=== PATIENT | female | born 1935 | race Caucasian/White ===

== ENCOUNTER 2016-12-01 13:25 | Outpatient (CLI) | payer MEDICARE, OTHER | END 2016-12-01 13:26 | disposition home or self-care (01) | DX: I10 Essential (primary) hypertension (principal); E78.5 Hyperlipidemia, unspecified ==

== ENCOUNTER 2017-06-28 20:13 | Outpatient (CLI) | payer MEDICARE, OTHER | END 2017-06-28 20:14 | disposition home or self-care (01) | LOC: LAB.R 20:13 | PROVIDERS: ATTEND Family Medicine | DX: N39.0 Urinary tract infection, site not specified (principal) | CPT/HCPCS: 87086 ==

== ENCOUNTER 2017-07-04 09:45 | Outpatient (CLI) | payer MEDICARE, OTHER | END 2017-07-04 09:46 | disposition home or self-care (01) | LOC: LAB.R 09:45 | PROVIDERS: ATTEND Family Medicine | DX: N39.0 Urinary tract infection, site not specified (principal) | CPT/HCPCS: 87086 ==

== ENCOUNTER 2017-12-24 14:49 | Outpatient (CLI) | payer MEDICARE, OTHER ==
--- NOTE | 2017-12-25 21:11 | Mammography Report ---
DATE OF SERVICE: 12/24/2017 DIGITAL SCREENING MAMMOGRAM: 12/24/2017 CLINICAL INDICATION: An 82-year-old with history of benign right breast biopsy for screening. COMPARISON: 02/2016, 01/2015, 09/2013, 08/2012, 08/2011, 08/2010. TECHNIQUE: Routine CC and MLO projections were obtained of the breasts. The breasts again demonstrate scattered fibroglandular densities bilaterally. Post-biopsy changes in the right upper central breast are stable. In the left inner slightly upper breast, there is a possible developing density. Further evaluation with spot compression views and possible ultrasound is recommended. IMPRESSION: Incomplete examination. RECOMMENDATIONS: Additional evaluation of the left breast as above. BIRADS category: 0, incomplete. STANDARD QUALIFYING STATEMENTS 1. This examination was reviewed with the aid of Computed-Aided Detection (CAD). 2. A negative or benign imaging report should not delay biopsy if clinically suspicious findings are present. Consider surgical consultation if warranted. More than 5% of cancers are not identified by imaging. 3. Dense breasts may obscure an underlying neoplasm. TD: 12/25/2017 22:10
== END 2017-12-24 14:50 | disposition home or self-care (01) ==
LOC: DI 14:49
PROVIDERS: ATTEND Family Medicine
DX: Z12.31 Encounter for screening mammogram for malignant neoplasm of breast (principal); R92.8 Other abnormal and inconclusive findings on diagnostic imaging of breast
CPT/HCPCS: 77067

== ENCOUNTER 2017-12-24 14:49 | Outpatient (CLI) | payer MEDICARE, OTHER ==
--- NOTE | 2017-12-26 13:05 | DEXA Report ---
DEXA: 12/24/2017 CLINICAL INDICATION: Postmenopausal. TECHNIQUE: Dual energy x-ray absorptiometry (DXA) was performed on a [employer] system. Regions measured are the AP spine, femoral neck, and, if needed, forearm. COMPARISON: None. In accordance with the International Society for Clinical Densitometry (ISCD) guidelines, data from previous exams may be reanalyzed using current recommendations and techniques. This is done to allow a more accurate basis for comparison with the current study. FINDINGS The data for the lumbar spine is as follows: REGION BMD (g/cm/cm) T-SCORE Z-SCORE L1 0.965 -1.4 0.6 L2 1.040 -1.3 0.7 L3 1.076 -1.0 1.0 L4 1.194 0.0 2.0 L1-L4 1.077 -0.9 1.2 L2-L4 1.108 -0.8 1.2 NOTE: All evaluable vertebrae are used for classification. The data for the hip is as follows: REGION BMD (g/cm/cm) T-SCORE Z-SCORE Neck 0.780 -1.9 0.5 TOTAL 0.790 -1.7 0.5 NOTE: The femoral neck or total proximal femur, whichever is lowest, is used for classification. IMPRESSION THE WHO CLASSIFICATION BASED ON THE INTERNATIONAL REFERENCE STANDARD IS OSTEOPENIA. THE FRACTURE RISK IS INCREASED. RECOMMENDATION: Patients with diagnosis of osteoporosis or osteopenia should have regular bone mineral density assessment. For those eligible for Medicare, routine testing is allowed once every 2 years. Testing frequency can be increased for patients who have rapidly progressing disease or for those who are receiving medical therapy to restore bone mass. COMMENT: World Health Organization (WHO) definitions for osteoporosis and osteopenia: NORMAL BMD: T-score at 1.0 or higher, fracture risk is low. OSTEOPENIA BMD: T-score between 1.0 and -2.5, fracture risk is increased. OSTEOPOROSIS BMD: T-score at 2.5 or lower, fracture risk high. National Osteoporosis Foundation recommends: 1. Obtain adequate dietary calcium (at least 1200 mg per day) and vitamin D (400 -800 international units per day). 2. Participate, as appropriate, in regular weightbearing and muscle- strengthening exercise. 3. Avoid tobacco use and reduce alcohol and caffeine intake. 4. For more detailed information see the website at www.NOF.org. TD: 12/25/2017 17:52 MTDD
== END 2017-12-24 14:50 | disposition home or self-care (01) ==
LOC: DI 14:49
PROVIDERS: ATTEND Family Medicine
DX: M85.88 Other specified disorders of bone density and structure, other site (principal)
CPT/HCPCS: 77080

== ENCOUNTER 2018-01-23 09:47 | Outpatient (CLI) | payer MEDICARE, OTHER ==
--- NOTE | 2018-01-23 14:04 | Ultrasound Report ---
LEFT BREAST ULTRASOUND: 01/23/2018 CLINICAL INDICATION: Possible nodule left breast. TECHNIQUE: Real-time scanning was performed with licensing representative static images obtained. FINDINGS: Ultrasound of the left inner breast was performed. At the 9 o'clock position, approximately 6 cm from the nipple, there is a hypoechoic mostly circumscribed nodule, with no demonstrable vascularity. It measures 5 x 5 x 4 mm. The central calcification identified on mammogram is visible on ultrasound. Given that this is new from previous mammograms, it is suspicious, and biopsy is recommended. The nodule appears amenable to ultrasound-guided core needle biopsy. IMPRESSION: SUSPICIOUS SOLID NODULE CORRELATING WITH THE MAMMOGRAPHIC ABNORMALITY. RECOMMENDATION: BIOPSY. THE NODULE APPEARS AMENABLE TO ULTRASOUND-GUIDED CORE NEEDLE BIOPSY. BI-RADS CATEGORY 4-SUSPICIOUS ABNORMALITY. Results and recommendations discussed with the patient at the time of the examination, and called to Dr. Ferrari on 01/23/2018. Biopsy is scheduled for 01/29/2018 at 9:45 a.m. TD: 01/23/2018 14:03
--- NOTE | 2018-01-23 16:20 | Mammography Report ---
DIGITAL DIAGNOSTIC LEFT MAMMOGRAM: 01/23/2018 CLINICAL INDICATION: Possible nodule on screening exam. TECHNIQUE: Left true lateral and spot compression views. COMPARISON: 12/24/2017, 03/03/2016, 02/01/2015, 10/17/2013, 09/13/2012, 09/19/2011, 09/19/2010. FINDINGS: The left breast again demonstrates scattered fibroglandular densities. The density in question in the left inner central breast persists on additional compression. The margins appear mostly circumscribed. A central calcification is present. Please also refer to left breast ultrasound of the same day. IMPRESSION: SUSPICIOUS ABNORMALITY, WITH A SOLID NODULE ON ULTRASOUND CORRELATING WITH THE MAMMOGRAPHIC ABNORMALITY. RECOMMENDATION: BIOPSY. THE NODULE APPEARS AMENABLE TO ULTRASOUND-GUIDED CORE NEEDLE BIOPSY. BIRADS CATEGORY 4-SUSPICIOUS ABNORMALITY. Results and recommendations discussed with the patient at the time of the examination, and called to Dr. Ferrari on 01/23/2018. Biopsy is scheduled for 01/29/2018 at 9:45 a.m. STANDARD QUALIFYING STATEMENTS: 1. This examination was reviewed with the aid of Computer-Aided Detection (CAD). 2. A negative or benign imaging report should not delay biopsy if clinically suspicious findings are present. Consider surgical consultation if warranted. More than 5% of cancers are not identified by imaging. 3. Dense breasts may obscure an underlying neoplasm. TD: 01/23/2018 16:19
== END 2018-01-23 09:48 | disposition home or self-care (01) ==
LOC: DI 09:47
PROVIDERS: ATTEND Physician Assistant Medical
DX: N63.22 Unspecified lump in the left breast, upper inner quadrant (principal); N63.24 Unspecified lump in the left breast, lower inner quadrant
CPT/HCPCS: 76642

== ENCOUNTER 2018-01-29 09:23 | Outpatient (CLI) | payer MEDICARE, OTHER ==
[2018-01-29 12:28] VITALS: BP 155/59
[2018-01-29] MEDS ORDERED: BUFFERED LIDOCAINE 10 ML SYRINGE IU ONE (14:24)
[2018-01-29] MEDS ORDERED: BUPIVACAINE 0.5%-EPI 1:200000 PF 10 ML VIAL SUBQ STA (14:32)
--- NOTE | 2018-01-29 15:10 | Ultrasound Report ---
ULTRASOUND GUIDED CORE NEEDLE BIOPSY LEFT BREAST: 01/29/2018 CLINICAL INDICATION: 4 mm nodule with central calcification 9-o'clock position, left breast. FINDINGS: Following obtaining informed consent, the patient's left breast was prepped and draped in the usual sterile fashion. The skin and soft tissues were anesthetized with lidocaine and Sensorcaine. A small luisa was made in the skin with a #11 blade. A 12-gauge Celero vacuum-assisted device was used to obtain 3 specimens. A Celero marker was placed into the biopsy cavity under ultrasound guidance. The patient was taken to a separate mammography machine, and a 2-view digital mammogram was performed, demonstrating the marker adjacent to the nodule and calcification, and no significant postbiopsy hematoma. The wound was dressed and ice applied. The patient was observed for approximately 15 minutes, then was discharged from [facility] in good condition following instructions on wound care and obtaining biopsy results. The tissue was sent for histologic analysis. IMPRESSION: ULTRASOUND-GUIDED BIOPSY OF THE LEFT BREAST. AN ADDENDUM WILL BE MADE TO THIS REPORT WHEN THE PATHOLOGY IS REVIEWED TO ESTABLISH CONCORDANCE. TD: 01/29/2018 15:09
== END 2018-01-29 09:24 | disposition home or self-care (01) ==
LOC: DI 09:23
PROVIDERS: ATTEND Family Medicine
DX: N60.32 Fibrosclerosis of left breast (principal); N64.1 Fat necrosis of breast
CPT/HCPCS: 19083; 88305

== ENCOUNTER 2019-01-27 09:41 | Outpatient (CLI) | payer MEDICARE, OTHER ==
--- NOTE | 2019-01-28 10:35 | Ultrasound Report ---
Reason: THYROMEGALY Procedure Date: 01/27/2019 Accession Number: [id number] / [id number] Procedure: US - Head or Neck Soft Tissue CPT Code: FULL RESULT: EXAM: THYROID ULTRASOUND EXAM DATE: 01/27/2019 11:17 AM. CLINICAL HISTORY: Thyromegaly. COMPARISON: None. TECHNIQUE: Real time sonographic imaging of the thyroid was performed by the clothes presser. Multiple policy services representative static images were saved for review. FINDINGS: THYROID GLAND: Right Lobe: 4.4 x 1.3 x 1.3 cm, volume 3.9 cc. Normal background echotexture. Right Lobe Nodules: 1. 0.5 x 0.3 x 0.4 cm heterogeneous predominantly solid posterior mid right thyroid nodule with small cystic components. No vascularity or microcalcifications. 2. 1.1 x 0.5 x 0.7 cm heterogeneous mixed cystic and solid inferior right thyroid nodule. No vascularity or microcalcifications. 3. 0.4 x 0.3 x 0.4 cm septated hypoechoic inferior right thyroid colloid cyst. No solid components or thickened septations or mural nodules identified. Left Lobe: 4.1 x 1.1 x 1.2 cm, volume 2.8 cc. Normal background echotexture. Left Lobe Nodules: None. Isthmus: 0.3 cm AP. Isthmic Nodules: None. LYMPH NODES: No adenopathy demonstrated in the central or lateral compartment. OTHER: None. IMPRESSION: 1. Multiple solid and mixed cystic and solid right thyroid nodules. No concerning thyroid nodule or mass warranting immediate percutaneous ultrasound-guided biopsy. Findings could be followed in 12-24 months to document stability. 2. No pathologic adenopathy. Management recommendations are based on 2015 [place] [employer] Management Guidelines for Adult Patients with Thyroid Nodules and Differentiated Thyroid Cancer. RADIA
== END 2019-01-27 09:42 | disposition home or self-care (01) ==
LOC: DI 09:41
PROVIDERS: ATTEND Family Medicine
DX: E01.0 Iodine-deficiency related diffuse (endemic) goiter (principal)
CPT/HCPCS: 76536

== ENCOUNTER 2019-04-11 12:40 | Outpatient (CLI) | payer MEDICARE, OTHER ==
--- NOTE | 2019-04-11 13:25 | Mammography Report ---
Reason: ABNORMAL MAMMO Procedure Date: 04/11/2019 Accession Number: [id number] / [id number] Procedure: [facility] - Diagnostic Dig Bilat CPT Code: FULL RESULT: EXAM: Diagnostic Dig Bilat DATE: 04/11/2019 1:09 PM CLINICAL HISTORY: Surveillance imaging left breast for benign concordant biopsy if fat necrosis. Prior history of benign breast biopsy on the right as well. No reported personal or family history of breast cancer. TECHNIQUE: (B) - Bilateral CC and MLO views were obtained. COMPARISON: 01/29/2018 through 10/17/2013 PARENCHYMAL PATTERN: (A) - The breasts demonstrate scattered fibroglandular densities bilaterally. FINDINGS: Bilateral breasts: There are no suspicious masses, calcifications, or areas of distortion. Stable biopsy marker in the upper central right breast. Expected appearance of benign concordant biopsy site medial left breast with associated clip, which returned fat necrosis. IMPRESSION: Bilateral breasts: Benign bilateral imaging findings. Expected appearance of benign concordant biopsy of fat necrosis medial left breast. Benign. BI-RADS Category 2. Recommend return to annual screening mammography. RECOMMENDATION: (ANNUAL) - Recommend routine annual screening mammography. BI-RADS CATEGORY: (2) - Benign Findings. STANDARD QUALIFYING STATEMENTS: 1. This examination was not reviewed with the aid of Computer-Aided Detection (CAD). 2. A negative or benign imaging report should not preclude biopsy if clinically suspicious findings are present. 3. Dense breasts may obscure an underlying neoplasm. 4. This examination was reviewed with the aid of 3D breast imaging (tomosynthesis).
== END 2019-04-11 12:41 | disposition home or self-care (01) ==
LOC: DI 12:40
PROVIDERS: ATTEND Family Medicine
DX: R92.8 Other abnormal and inconclusive findings on diagnostic imaging of breast (principal)
CPT/HCPCS: 77066

== ENCOUNTER 2020-05-21 08:00 | Outpatient (CLI) | payer MEDICARE, OTHER ==
[2020-05-21 12:21] LABS: BASOPHILS # (AUTO) 0.1 10^3/uL (0.0-0.1); BASOPHILS % (AUTO) 0.9 %; EOSINOPHILS # (AUTO) 0.2 10^3/uL (0.0-0.7); EOSINOPHILS % (AUTO) 2.3 %; HGB - HEMOGLOBIN 14.1 g/dL (12.0-16.0); LYMPHOCYTES # (AUTO) 1.3 10^3/uL (1.5-3.5); LYMPHOCYTES % (AUTO) 19.7 %; MEAN CORPUSCULAR HGB CONC 32.6 g/dL (32.0-36.0); MEAN CORPUSCULAR VOLUME 95.2 fL (81.0-99.0); MEAN PLATELET VOLUME 10.5 fL (7.9-10.8); MONOCYTES # (AUTO) 0.8 10^3/uL (0.0-1.0); MONOCYTES % (AUTO) 11.5 %; NEUTROPHILS # (AUTO) 4.2 10^3/uL (1.5-6.6); NEUTROPHILS % (AUTO) 65.1 %; PLT - PLATELET COUNT 242 10^3/uL (130-450); RED BLOOD COUNT 4.55 10^6/uL (4.20-5.40); WHITE BLOOD COUNT 6.5 x10^3/uL (4.8-10.8)
[2020-05-21 13:02] LABS: ALBUMIN 4.3 g/dL (3.2-5.5); ALBUMIN/GLOBULIN RATIO 1.7 (1.0-2.2); ALKALINE PHOSPHATASE 71 IU/L (42-121); ALT ALANINE AMINOTRANSFERASE 21 IU/L (10-60); AST ASPARTATE AMINOTRANSFERASE 23 IU/L (10-42); BUN - BLOOD UREA NITROGEN 21 mg/dL (6-20); CALCIUM 9.5 mg/dL (8.5-10.3); CARBON DIOXIDE - CO2 27 mmol/L (21-32); CHLORIDE 104 mmol/L (101-111); CHOL/HDL RATIO 2.7 (<4.4); CHOLESTEROL 200 mg/dL; CREATININE 0.8 mg/dL (0.4-1.0); GLUCOSE 124 mg/dL (70-100); HDL CHOLESTEROL 75 mg/dL; LDL CHOLESTEROL,CALCULATED 103 mg/dL; LDL/HDL RATIO 1.4 (<4.4); SODIUM 141 mmol/L (135-145); TOTAL PROTEIN 6.8 g/dL (6.7-8.2); VLDL CHOLESTEROL 22 mg/dL
[2020-05-21 13:11] LABS: FREE T4 (FREE THYROXINE) 0.76 ng/dL (0.58-1.64)
== END 2020-05-21 23:59 | disposition home or self-care (01) ==
LOC: LAB.WCP 08:00
PROVIDERS: ATTEND Family Medicine
DX: I10 Essential (primary) hypertension (principal); E78.5 Hyperlipidemia, unspecified; E01.0 Iodine-deficiency related diffuse (endemic) goiter
CPT/HCPCS: 36415; 80053; 80061; 83721; 84439; 84443; 84481; 85025

== ENCOUNTER 2020-05-24 10:38 | Outpatient (CLI) | payer MEDICARE, OTHER ==
--- NOTE | 2020-05-24 11:54 | DEXA Report ---
Reason: POST MENOPAUSAL Procedure Date: 05/24/2020 Accession Number: [id number] / [id number] Procedure: DEX - Dexa Spine and/or Hip CPT Code: Final Report FULL RESULT: PROCEDURE: Dexa Spine and/or Hip INDICATIONS: POST MENOPAUSAL TECHNIQUE: Dual energy x-ray absorptiometry (DXA) was performed on a [employer] System. Regions measured are the AP Spine, femoral neck, and if needed forearm. COMPARISON: None. FINDINGS: Lumbar Spine: Bone Mineral Density 1.099 g/cm/cm,T score -0.7, Left Femoral Neck: Bone Mineral Density 0.758 g/cm/cm, T score -2.0, (T score greater or equal to -1.0: NORMAL) (T score from -1.1 to -2.4: OSTEOPENIA) (T score less than or equal to -2.5 to: OSTEOPOROSIS) Impression: Osteopenia. Patients with diagnosis of osteoporosis or osteopenia should have regular bone mineral density assessment. For those eligible for Medicare, routine testing is allowed once every 2 years. Testing frequency can be increased for patients who have rapidly progressing disease or for those who are receiving medical therapy to restore bone mass. Reviewed by: Mika Stearns MD on 05/24/2020 11:52 AM PDT Approved by: Mika Stearns MD on 05/24/2020 11:52 AM PDT Station ID: [id number]
== END 2020-05-24 10:39 | disposition home or self-care (01) ==
LOC: DI 10:38
PROVIDERS: ATTEND Family Medicine
DX: M85.88 Other specified disorders of bone density and structure, other site (principal)
CPT/HCPCS: 77080

== ENCOUNTER 2021-03-22 09:42 | Outpatient (CLI) | payer MEDICARE, OTHER ==
--- NOTE | 2021-03-23 13:08 | Mammography Report ---
BILATERAL DIGITAL SCREENING MAMMOGRAM 3D/2D: 03/22/2021 CLINICAL: Routine screening. Comparison is made to exams dated: 04/11/2019 mammogram, 01/29/2018 mammogram, 01/23/2018 mammogram, 11/27 mammogram, and 03/03/2016 mammogram - [facility]. The tissue of both breasts is predominantly fatty. There are benign calcifications in both breasts. No significant masses, calcifications, or other findings are seen in either breast. There has been no significant interval change. IMPRESSION: BENIGN There is no mammographic evidence of malignancy. A 1 year screening mammogram is recommended. This exam was interpreted at Station ID: [id number]. NOTE: For mammograms, a report in lay terms will be sent to the patient. Approximately 15% of breast malignancies will not be visualized mammographically. In the management of a palpable breast mass, a negative mammogram must not discourage biopsy of a clinically suspicious lesion. Electronically Signed By: Les Richmond acr/penrad:03/22/2021 10:54:55 ACR BI-RADS Category 2: Benign Finding(s) 3342F PARENCHYMAL PATTERN: (F) - The breast(s) demonstrate(s) diffuse fatty replacement. BI-RADS CATEGORY: (2) - 2 RECOMMENDATION: (ANNUAL) - Recommend routine annual screening mammography. [id number] 1 year screening LATERALITY: (B)
== END 2021-03-22 09:43 | disposition home or self-care (01) ==
LOC: DI 09:42
PROVIDERS: ATTEND Family Medicine
DX: Z12.31 Encounter for screening mammogram for malignant neoplasm of breast (principal)

== ENCOUNTER 2023-01-09 14:45 | Outpatient (CLI) | payer MEDICARE, OTHER ==
--- NOTE | 2023-01-09 17:14 | Ultrasound Report ---
PROCEDURE: Head or Neck Soft Tissue INDICATIONS: THYROID NODULE TECHNIQUE: Real-time scanning was performed of the thyroid gland, with image documentation. COMPARISON: 01/27/2019 FINDINGS: Right: Thyroid lobe measures 4.5 x 1.1 x 1.4 cm, and is homogeneous in echotexture. Left: Thyroid lobe measures 4.1 x 1.3 x 1.3 cm, and is homogenous in echotexture. Isthmus: 2.3 mm thick. Nodule number: One Location: Midpole of right thyroid lobe Size: 0.4 x 0.3 x 0.4 cm, previously 0.5 x 0.3 x 0.4 cm. Composition: Spongiform Echogenicity: Hypoechoic Shape: wider than tall. Margins: Smooth Echogenic foci: None Total points: 3 ACR TI-RADS category: Mildly suspicious. Nodule number: Two Location: Lower pole right thyroid lobe Size: 0.9 x 0.4 x 0.5 cm, previously 1.1 x 0.5 x 0.7 cm. Composition: Predominantly solid Echogenicity: Hypoechoic Shape: wider than tall. Margins: Smooth Echogenic foci: Punctate Total points: 6 ACR TI-RADS category: Moderately suspicious Nodule number: Three Location: Lower pole right thyroid lobe Size: 0.4 x 0.4 x 0.5 cm, previously 0.4 x 0.3 x 0.4 cm. Composition: Cystic Echogenicity: Anechoic Shape: wider than tall. Margins: Smooth Echogenic foci: None Total points: 0 ACR TI-RADS category: Benign IMPRESSION: 1. Tiny right thyroid lobe nodules as described in detail above is essentially unchanged or slightly smaller in size compared to prior study in 2019. Findings likely represent benign process. No further sonographic follow-up is indicated at this time. ACR TI-RADS definitions and recommendations: TI-RADS 1 (benign): 0 points. FNA not needed. TI-RADS 2 (not suspicious): 2 points. FNA not needed. TI-RADS 3 (mildly suspicious): 3 points. "FNA if 2.5 cm or larger, follow up if 1.5 cm or larger (at 1, 3, and 5 years). TI-RADS 4 (moderately suspicious): 4-6 points. "FNA if 1.5 cm or larger, follow up if 1 cm or larger (at 1, 2, 3, and 5 years). TI-RADS 5 (highly suspicious): 7 points or more. "FNA if 1 cm or larger, follow up if 0.5 cm or larger (every year for 5 years). Reviewed by: Mathew Maldonado MD on 01/09/2023 5:13 PM PST Approved by: Mathew Maldonado MD on 01/09/2023 5:13 PM [facility] Station ID: [id number]
== END 2023-01-09 14:46 | disposition home or self-care (01) ==
LOC: DI 14:45
PROVIDERS: ATTEND Internal Medicine
DX: E04.2 Nontoxic multinodular goiter (principal)

== ENCOUNTER 2023-01-09 14:46 | Outpatient (CLI) | payer MEDICARE, OTHER ==
--- NOTE | 2023-01-10 11:36 | Mammography Report ---
BILATERAL DIGITAL SCREENING MAMMOGRAM 3D/2D: 01/09/2023 CLINICAL: Routine screening. Comparison is made to exams dated: 03/22/2021 mammogram, 04/11/2019 mammogram, 01/29/2018 mammogram, 12/28 mammogram, and 12/24/2017 mammogram - [facility]. Both breasts are almost entirely fatty (category a/<25% glandular tissue). There are benign calcifications in both breasts. There also is a biopsy clip in both breasts. No significant masses, calcifications, or other findings are seen in either breast. There has been no significant interval change. IMPRESSION: BENIGN There is no mammographic evidence of malignancy. A 1 year screening mammogram is recommended. This exam was interpreted at Station ID: [id number]. NOTE: For mammograms, a report in lay terms will be sent to the patient. Approximately 15% of breast malignancies will not be visualized mammographically. In the management of a palpable breast mass, a negative mammogram must not discourage biopsy of a clinically suspicious lesion. Electronically Signed By: Gomez hernandez/vladimir:01/10/2023 07:22:51 ACR BI-RADS Category 2: Benign Finding(s) 3342F PARENCHYMAL PATTERN: (F) - The breast(s) demonstrate(s) diffuse fatty replacement. BI-RADS CATEGORY: (2) - 2 RECOMMENDATION: (ANNUAL) - Recommend routine annual screening mammography. [id number] 1 year screening LATERALITY: (B)
== END 2023-01-09 14:47 | disposition home or self-care (01) ==
LOC: DI 14:46
PROVIDERS: ATTEND Internal Medicine
DX: Z12.31 Encounter for screening mammogram for malignant neoplasm of breast (principal)

== ENCOUNTER 2024-02-06 09:14 | Outpatient (CLI) | payer MEDICARE, OTHER | END 2024-02-06 09:15 | disposition critical access hospital (66) | LOC: EMS 09:14 | DX: R07.9 Chest pain, unspecified (principal); M54.9 Dorsalgia, unspecified; M79.602 Pain in left arm; M79.601 Pain in right arm; R55 Syncope and collapse; R53.1 Weakness | CPT/HCPCS: A0425; A0427 ==

== ENCOUNTER 2024-02-06 09:27 | Emergency (ER) | payer MEDICARE, OTHER ==
[2024-02-06] MEDS: SODIUM CHLORIDE 0.9% 1,000 ML IV STA (09:53)
[2024-02-06 10:08] LABS: BASOPHILS % (AUTO) 0.2 %; EOSINOPHILS % (AUTO) 0.1 %; HCT - HEMATOCRIT 41.8 % (37.0-47.0); HGB - HEMOGLOBIN 13.5 g/dL (12.0-16.0); LYMPHOCYTES # (AUTO) 0.3 10^3/uL (1.5-3.5); LYMPHOCYTES % (AUTO) 2.3 %; MEAN CORPUSCULAR HEMOGLOBIN 30.1 pg (27.0-31.0); MEAN CORPUSCULAR HGB CONC 32.3 g/dL (32.0-36.0); MEAN CORPUSCULAR VOLUME 93.3 fL (81.0-99.0); MEAN PLATELET VOLUME 9.7 fL (7.9-10.8); MONOCYTES # (AUTO) 1.1 10^3/uL (0.0-1.0); MONOCYTES % (AUTO) 7.5 %; NEUTROPHILS # (AUTO) 13.4 10^3/uL (1.5-6.6); NEUTROPHILS % (AUTO) 88.8 %; PLT - PLATELET COUNT 187 10^3/uL (130-450); RED BLOOD COUNT 4.48 10^6/uL (4.20-5.40); RED CELL DISTRIBUTION WIDTH 13.2 % (12.0-15.0); WHITE BLOOD COUNT 15.1 x10^3/uL (4.8-10.8)
[2024-02-06 10:21] LABS: ALBUMIN/GLOBULIN RATIO 1.4 (1.0-2.2); ALKALINE PHOSPHATASE 80 IU/L (42-121); ALT ALANINE AMINOTRANSFERASE 30 IU/L (10-60); AST ASPARTATE AMINOTRANSFERASE 35 IU/L (10-42); BILIRUBIN,TOTAL 1.2 mg/dL (0.2-1.0); BUN - BLOOD UREA NITROGEN 17 mg/dL (6-20); CALCIUM 9.5 mg/dL (8.5-10.3); CARBON DIOXIDE - CO2 27 mmol/L (21-32); CHLORIDE 101 mmol/L (101-111); CREATININE 0.8 mg/dL (0.6-1.3); GFR - MDRD 68 (>89); GLUCOSE 152 mg/dL (74-104); SODIUM 135 mmol/L (135-145); TOTAL PROTEIN 6.8 g/dL (6.4-8.9)
[2024-02-06 10:23] LABS: LIPASE < 10 U/L (11-82)
[2024-02-06 10:27] LABS: TROPONIN I HIGH SENSITIVITY 12.9 ng/L (2.3-14.8)
--- NOTE | 2024-02-06 13:34 | CT Report ---
PROCEDURE: Head WO INDICATIONS: fall/head strike TECHNIQUE: Noncontrast 4.5 mm thick angled axial sections acquired from the foramen magnum to the vertex. For r adiation dose reduction, the following was used: automated exposure control, adjustment of mA and/or kV according to patient size. COMPARISON: None. FINDINGS: Image quality: Diagnostic CSF spaces: Basal cisterns are patent. Lateral ventricles are symmetric. Volume: Vascular calcifications. Periventricular white matter disease is commonly seen with chronic m icroangiopathy. Volume loss is present. These findings are mild to moderate. Brain: No intracranial hemorrhage. Wilson-white differentiation is grossly maintained. Craniofacial structures: No displaced fracture. Sinuses are clear. Orbits are intact. IMPRESSION: No acute intracranial abnormality. Reviewed by: Jam Issa MD on 02/06/2024 1:33 PM PDT Approved by: Jam Issa MD on 02/06/2024 1:33 PM PDT Station ID: [id number]
--- NOTE | 2024-02-06 13:38 | CT Report ---
PROCEDURE: Cervical Spine WO INDICATIONS: fall/pain TECHNIQUE: Noncontrast 3 mm thick sections acquired from the skull base to the T4 level. Sagittal and coronal r eformats were then constructed. For radiation dose reduction, the following was used: automated exp osure control, adjustment of mA and/or kV according to patient size. COMPARISON: None. FINDINGS: Image quality: Diagnostic Bones: Mild to moderate degenerative changes. Trace anterolisthesis of C6 on C7. Vertebral body heigh ts in the cervical spine are well-maintained. No traumatic subluxation. At the T1 vertebral body, there is an acute appearing fracture with less than 50% height loss. Partially visualized possible fracture also seen at the T3 vertebral body superior endplate. Soft tissues: No pathologic prevertebral soft tissue swelling. There are vascular calcifications. IMPRESSION: T1 and possible T3 fractures with less than 50% height loss. Trace anterolisthesis of C6 on C7, possi jessica degenerative. Mild to moderate overall spondylosis. Reviewed by: Jam Issa MD on 02/06/2024 1:37 PM PDT Approved by: Jam Issa MD on 02/06/2024 1:37 PM PDT Station ID: [id number]
--- NOTE | 2024-02-06 15:06 | ED Physician Documentation ---
History of Present Illness - Stated complaint Stated Complaint: GLF - Chief complaint Chief Complaint: Neuro - History obtained from History obtained from: Patient, EMS - Additonal information Additional information: The pt is brought by EMS to the ED for CC of syncope/GLF. The pt states she felt fine when she went to bed last night, but this morning when she got up to go to the bathroom, she felt lightheaded when she stood up. The pt had no CP, SOB, nausea, or focal weakness at that time. The pt immediately proceeded to ambulate to the bathroom, but by the last thing she remembers was washing her face at the sink, after which she woke up on the floor. The pt noticed some upper back pain, but otherwise seemed unhurt. She does not think she hit her ribs or head. She was able to get back up and ambulate to her bed, where she laid down for some time. She then was able to get back up, and while she felt a bit lightheaded, did not have another syncopal or near-syncopal episode. She states she walked to the front door, unlocked it, walked to her recliner in the living room, and called EMS. MEdics state that when they arrived, pt was sitting in her recliner, stable. She has had normal vital signs en-route. Pt states she has a pain in her upper back that radiates to her anterior chest, and hurts worse with movement and deep breaths. No SOB. No nausea or diaphoresis. No h/o CAD. No cough, fever, chills, vomiting, or diarrhea. The pt does admit that she probably does not drink enough water. The pt lives on her own and states that normally, she does very well. She was last June. PD PAST MEDICAL HISTORY - Past Medical History Past Medical History: Yes Cardiovascular: Hypertension, High cholesterol : Incontinence HEENT: Macular degeneration - Past Surgical History Past Surgical History: Yes General: Cholecystectomy HEENT: Cataracts, Tonsil/Adenoidectomy - Present Medications Home Medications: Ambulatory Orders Medication Instructions Recorded Confirmed HYDROcod/ACETAM 5/325 [[place] 5/325] 0.5 - 1 tablet PO Q6H PRN #14 02/06/24 tablet Magnesium 1 tab PO DAILY 02/06/24 02/06/24 Metoprolol Tartrate [Lopressor] 1 tab PO DAILY 02/06/24 02/06/24 Simvastatin [Zocor] 1 tab PO DAILY 02/06/24 02/06/24 oxyBUTYnin chloride [Oxybutynin 1 tab PO DAILY 02/06/24 02/06/24 Chloride] - Allergies Allergies/Adverse Reactions: Allergies Allergy/AdvReac Type Severity Reaction Status Date / Time No Known Drug Allergies Allergy Verified 02/06/24 09:31 - Social History Does the pt smoke?: No Smoking Status: Never smoker - Immunizations Immunizations are current?: Yes - POLST Patient has POLST: No PD ED PE NORMAL - Vitals Vital signs reviewed: Yes - General General: Alert and oriented X 3, No acute distress, Well developed/nourished - HEENT HEENT: Atraumatic, PERRL, EOMI, Moist mucous membranes - Neck Neck: Supple, no meningeal sign, Other (Pt in C-collar. TTP over superior-most T-spine and C 3-4 area.) - Cardiac Cardiac: RRR, No murmur, Strong equal pulses - Respiratory Respiratory: No respiratory distress, Clear bilaterally - Abdomen Abdomen: Soft, Non tender, Non distended - Back Back: Other (TTP without deformity T1-3 levels) - Derm Derm: Normal color, Warm and dry, No rash - Extremities Extremities: No deformity, No edema - Neuro Neuro: Alert and oriented X 3, nutrition services associate 2-12 intact, No motor deficit, No sensory deficit, Normal speech - Psych Psych: Normal mood, Normal affect - Free text exam Free text exam: Focal TTP R superoanteromedial chest. No deformity. Results - Vitals Vitals: Vital Signs - 24 hr 02/06/24 02/06/24 02/06/24 09:31 09:36 10:06 Temperature 36.7 C Heart Rate 96 90 88 Respiratory 16 17 19 Rate Blood Pressure 135/62 H 135/62 H 135/62 H O2 Saturation 92 90 L 92 02/06/24 02/06/24 02/06/24 10:36 11:06 11:30 Temperature Heart Rate 81 78 76 Respiratory 16 21 12 Rate Blood Pressure 129/50 L 129/61 126/68 O2 Saturation 90 L 90 L 02/06/24 02/06/24 02/06/24 12:00 12:30 13:00 Temperature Heart Rate 77 78 77 Respiratory 18 14 18 Rate Blood Pressure 131/62 H 129/54 L 131/62 H O2 Saturation 90 L 91 L 94 02/06/24 02/06/24 02/06/24 13:30 14:00 14:24 Temperature Heart Rate 77 72 70 Respiratory 12 14 14 Rate Blood Pressure 130/60 126/65 128/66 O2 Saturation 92 92 91 L 02/06/24 02/06/24 02/06/24 15:00 15:13 15:33 Temperature Heart Rate 68 72 67 Respiratory 14 14 14 Rate Blood Pressure 146/55 H 148/77 H 135/72 H O2 Saturation 93 92 92 Oxygen O2 Source Room air - Labs Labs: Laboratory Tests 02/06/24 02/06/24 09:59 09:59 WBC 15.1 H RBC 4.48 Hgb 13.5 Hct 41.8 MCV 93.3 MCH 30.1 MCHC 32.3 RDW 13.2 Plt Count 187 MPV 9.7 Neut # (Auto) 13.4 H Lymph # (Auto) 0.3 L [place] # (Auto) 1.1 H Eos # (Auto) 0.0 Baso # (Auto) 0.0 Absolute Nucleated RBC 0.00 Nucleated RBC % 0.0 Sodium 135 Potassium 4.0 Chloride 101 Carbon Dioxide 27 Anion Gap 7.0 BUN 17 Creatinine 0.8 Estimated GFR (MDRD) 68 L Glucose 152 H Calcium 9.5 Total Bilirubin 1.2 H AST 35 ALT 30 Alkaline Phosphatase 80 Troponin I High Sens 12.9 Total Protein 6.8 Albumin 4.0 Globulin 2.8 Albumin/Globulin Ratio 1.4 Lipase < 10 L - Rads (name of study) CT head Relevant Findings:: Final report received, See rad report (neg) CT cervical spine Relevant Findings:: Final report received (compression fx T1 and T3) PD Medical Decision Making - ED course Complexity details: reviewed results, re-evaluated patient, considered differential, d/w patient ED course: The pt was given IV fluids and worked up with labs, EKG, and CT scans of head and neck, all of which were unremarkable. I d/w pt that I have not found an emergent cause of her sx. She has been in NSR on the monitor throughout her entire stay, and after the initial syncopal episode, was ambulatory without difficulty. The pt does have compression fractures of T1 and 3, and this is most likely the cause of her mechanical back and chest pain. We have discussed symptomatic management at home, as well as the usual indications for return. Departure - Departure Disposition: 01 Home, Self Care Clinical Impression: Ground-level fall, Dehydration, Postural dizziness Compressed spine fracture Qualifiers: Encounter type: initial encounter Fracture of vertebra location: thoracic Thoracic vertebra fracture level: T1 Qualified Code(s): S22.010A - Wedge compression fracture of first thoracic vertebra, initial encounter for closed fracture Condition: Stable Instructions: ED Fx Comp Vertebral, ED Dehydration, ED Syncope Vasovagal Prescriptions: HYDROcod/ACETAM 5/325 [[place] 5/325] 0.5 - 1 tablet PO Q6H PRN #14 tablet PRN Reason: Pain Comments: Your laboratory studies look good. Your CT scans showed compression fractures in your upper T-spine, and these are going to take a long time to heal. You will most likely have some pain through at least part of that process, though it should gradually start to improve after the first week or two. A prescription for pain medication has been electronically transmitted to the [facility] pharmacy in [place]. You may take this as needed for pain, along with either the ibuprofen or aspirin, but please do not take Tylenol with this medication, as it does already contain some Tylenol. You should schedule a follow-up appoint with your primary doctor. If you are beginning to feel that you are not safe to live at home by yourself, then you should start the process early of looking into other situations, either having home help or moving to assisted living. If you are otherwise doing well living on your own, it may just be that you need some time to recover from what ever is making you feel weak and lightheaded. Get plenty of rest and fluids to drink, and make sure that when you sit or stand up, you allow time for your body to adjust to being up before you start trying to walk or maneuver. Forms: PCP List Discharge Date/Time: 02/06/24 15:38
[2024-02-06 15:20] VITALS: O2SAT 92
[2024-02-06 15:38] VITALS: BP 135/72
== END 2024-02-06 15:38 | disposition home or self-care (01) ==
LOC: EDUNIT# → SUPCPDRO 09:27 → ED 09:27
DX: S22.010A Wedge compression fracture of first thoracic vertebra, initial encounter for closed fracture (principal); W18.39XA Other fall on same level, initial encounter; Y92.002 Bathroom of unspecified non-institutional (private) residence as the place of occurrence of the external cause; E86.0 Dehydration; R42 Dizziness and giddiness; I10 Essential (primary) hypertension; E78.00 Pure hypercholesterolemia, unspecified
CPT/HCPCS: 36415; 80053; 83690; 84484; 85025; 93005; 99284

== ENCOUNTER 2024-02-25 12:08 | Outpatient (CLI) | payer MEDICARE, OTHER ==
--- NOTE | 2024-02-25 13:31 | XRAY Report ---
PROCEDURE: Lumbar Spine 2-3V INDICATIONS: THORACIC AND LUMBAR BACK PAIN TECHNIQUE: 3 views of the lumbar spine were acquired. COMPARISON: None. FINDINGS: Bones: 5 [id number] vertebrae are present. There is normal bony alignment. No vertebral body compression fractures. No suspicious bony lesions. Moderate disc height loss at L4-5, L5-S1. Mild disc height loss at remaining levels. Facet arthrosis of L4-S1. Soft tissues: Overlying bowel gas pattern is normal. No suspicious soft tissue calcifications. Chol ecystectomy. IMPRESSION: Mild to moderate, multilevel degenerative disc disease and lower lumbar facet arthrosis. Reviewed by: Andre Epps MD on 02/25/2024 1:30 PM PDT Approved by: Andre Epps MD on 02/25/2024 1:30 PM PDT Station ID: [id number]
--- NOTE | 2024-02-25 13:36 | XRAY Report ---
PROCEDURE: Thoracic Spine 3V INDICATIONS: THORACIC AND LUMBAR BACK PAIN TECHNIQUE: 3 views of the thoracic spine were acquired. COMPARISON: Radiograph 02/15/2016. FINDINGS: Bones: Compression deformity of the T8 vertebral body, without endplate retropulsion. No suspicious bony lesions. 12 pairs of ribs are noted, and appear intact where visualized. Soft tissues: No paravertebral stripe thickening. IMPRESSION: Moderate compression deformity of the T8 vertebral body, without endplate retropulsion. This is age i ndeterminate, but new since 2015. Reviewed by: Andre Epps MD on 02/25/2024 1:34 PM PDT Approved by: Andre Epps MD on 02/25/2024 1:34 PM PDT Station ID: [id number]
== END 2024-02-25 12:09 | disposition home or self-care (01) ==
LOC: DI 12:08
PROVIDERS: ATTEND Internal Medicine
DX: M43.8X4 Other specified deforming dorsopathies, thoracic region (principal); M51.36 Other intervertebral disc degeneration, lumbar region; M51.37 Other intervertebral disc degeneration, lumbosacral region; M47.816 Spondylosis without myelopathy or radiculopathy, lumbar region; M47.817 Spondylosis without myelopathy or radiculopathy, lumbosacral region

== ENCOUNTER 2024-03-12 13:40 | Outpatient (CLI) | payer MEDICARE, OTHER | END 2024-03-12 13:41 | disposition home or self-care (01) | LOC: DI 13:40 | PROVIDERS: ATTEND Family Medicine | DX: R55 Syncope and collapse (principal) | CPT/HCPCS: 93307 ==

== ENCOUNTER 2024-03-12 14:25 | Outpatient (CLI) | payer MEDICARE, OTHER ==
--- NOTE | 2024-03-13 10:59 | Ultrasound Report ---
PROCEDURE: Carotid Doppler Complete INDICATIONS: SYNCOPE TECHNIQUE: Color and pulse Doppler interrogation was performed of both carotid systems, with image documentation and velocity measurements. COMPARISON: None. FINDINGS: Right side: Brachial blood pressure: 132/60 mm Hg. Common carotid artery peak systolic velocity: 46 cm/sec. Internal carotid artery peak systolic velocity: 81 cm/sec. Internal carotid artery end diastolic velocity: 21 cm/sec. External carotid artery peak systolic velocity: 43 cm/sec. ICA/CCA peak systolic ratio: 1.76 . Wilson scale imaging description: Polypoid sessile calcific plaque at the carotid bulb and right proxi mal internal carotid artery Percent internal carotid artery stenosis: Less than 50%. Vertebral artery: Flow direction is antegrade. Left side: Brachial blood pressure: 135/51 mm Hg. Common carotid artery peak systolic velocity: 53 cm/sec. Internal carotid artery peak systolic velocity: 73 cm/sec. Internal carotid artery end diastolic velocity: 22 cm/sec. External carotid artery peak systolic velocity: 51 cm/sec. ICA/CCA peak systolic ratio: 1.38 . Wilson scale imaging description: A central calcific plaque in the proximal ICA origin at the bifurcat ion and small polypoid plaque noted. No subjective luminal stenosis. Percent internal carotid artery stenosis: Less than 50%. Vertebral artery: Flow direction is antegrade. IMPRESSION: 1. In the right internal carotid artery, there is less than 50 percent stenosis based on peak systoli c velocity criteria. 2. In the left internal carotid artery, there is less than 50 percent stenosis based on peak systolic velocity criteria. 3. Antegrade blood flow within the right vertebral artery. 4. Antegrade blood flow within the left vertebral artery. The estimate of stenosis included in the report of the imaging study was calculated using the [facility]-end orsed standards of carotid artery stenosis. Reviewed by: Maria Luisa Hinson MD on 03/13/2024 10:58 AM PDT Approved by: Maria Luisa Hinson MD on 03/13/2024 10:58 AM PDT Station ID: [id number]
== END 2024-03-12 14:26 | disposition home or self-care (01) ==
LOC: DI 14:25
PROVIDERS: ATTEND Internal Medicine
DX: I65.23 Occlusion and stenosis of bilateral carotid arteries (principal)
CPT/HCPCS: 93880

== ENCOUNTER 2024-03-29 08:51 | Outpatient (CLI) | payer MEDICARE, OTHER ==
--- NOTE | 2024-03-31 19:03 | MRI Report ---
PROCEDURE: MR cervical spine without contrast. INDICATIONS: SYNCOPE, CERVICAL RADICULOPATHY TECHNIQUE: Multiplanar multisequential MRI of the cervical spine was obtained without contrast. COMPARISON: None. FINDINGS: Alignment and Curvature: Mild degenerative retrolisthesis C3-4 and anterior listhesis C6-7. Bone Marrow: Wedge-shaped compression fractures at the T1, T3 and T4 with edema in the T1 and T4. Spinal Cord: Visualized spinal cord has normal size and signal. No cerebellar tonsillar herniation. Paraspinal Soft Tissues: No paravertebral masses. Prevertebral soft tissues are normal in thickness . At the disc spaces, central and foraminal evaluation is limited by small [id number] and exaggerate d lordosis. However, there is mild central stenosis at C4-5, C5-6. IMPRESSION: Wedge-shaped compression fractures in the partially imaged upper thoracic spine results in an exagger ated cervical spine lordosis. Marrow edema in the L1 and L4 compression fractures suggest an at least subacute chronology. Reviewed by: Jer Burch MD on 03/31/2024 6:02 PM [facility] Approved by: Jer Burch MD on 03/31/2024 6:02 PM [facility] Station ID: [id number]
== END 2024-03-29 08:52 | disposition home or self-care (01) ==
LOC: DI 08:51
PROVIDERS: ATTEND Internal Medicine
DX: M48.54XA Collapsed vertebra, not elsewhere classified, thoracic region, initial encounter for fracture (principal); M48.56XA Collapsed vertebra, not elsewhere classified, lumbar region, initial encounter for fracture; M47.812 Spondylosis without myelopathy or radiculopathy, cervical region; R55 Syncope and collapse

== ENCOUNTER 2024-04-22 08:00 | Outpatient (CLI) | payer MEDICARE, OTHER | END 2024-04-22 23:59 | disposition home or self-care (01) | LOC: LAB.R 08:00 | PROVIDERS: ATTEND Urology | DX: R39.14 Feeling of incomplete bladder emptying (principal) | CPT/HCPCS: 87086 ==

== ENCOUNTER 2024-04-25 10:48 | Outpatient (CLI) | payer MEDICARE, OTHER ==
--- NOTE | 2024-04-25 12:27 | DEXA Report ---
PROCEDURE: Dexa Spine and/or Hip INDICATIONS: POST MENOPAUSAL TECHNIQUE: Dual energy x-ray absorptiometry (DXA) was performed on a [employer] System. Regions measur ed are the AP Spine, femoral neck, and if needed forearm. COMPARISON: 05/24/2020, 12/24/2017 FINDINGS: Lumbar Spine: Bone Mineral Density: 1.079 g/cm/cm,T score: -0.8. Since the most recent prior study, there has been a statistically significant decrease in bone mineral density by -8.5 percent. Left Femoral Neck: Bone Mineral Density: 0.650 g/cm/cm, T score: -2.8. Left Hip: Bone Mineral Density: 0.647 g/cm/cm,T score: -2.9. Since the most recent prior study, there has been a statistically significant decrease in bone mineral density by -14.6 percent. (T score greater or equal to -1.0: NORMAL) (T score from -1.1 to -2.4: OSTEOPENIA) (T score less than or equal to -2.5 to: OSTEOPOROSIS) Impression: By WHO criteria, this patient has osteoporosis. Interval statistical decrease in bone mineral density of the lumbar spine. Interval statistical decre ase in bone mineral density of the hip. Patients with diagnosis of osteoporosis or osteopenia should have regular bone mineral density assess ment. For those eligible for Medicare, routine testing is allowed once every 2 years. Testing frequ ency can be increased for patients who have rapidly progressing disease or for those who are receivin g medical therapy to restore bone mass. Reviewed by: Andre Epps MD on 04/25/2024 12:26 PM PDT Approved by: Andre Epps MD on 04/25/2024 12:26 PM PDT Station ID: [id number]
== END 2024-04-25 10:49 | disposition home or self-care (01) ==
LOC: DI 10:48
PROVIDERS: ATTEND Family Medicine
DX: M81.0 Age-related osteoporosis without current pathological fracture (principal); S22.010A Wedge compression fracture of first thoracic vertebra, initial encounter for closed fracture; Z78.0 Asymptomatic menopausal state

== ENCOUNTER 2024-05-21 12:41 | Outpatient (CLI) | payer MEDICARE, OTHER ==
--- NOTE | 2024-05-21 16:16 | MRI Report ---
PROCEDURE: Cervical Spine WO INDICATIONS: CERVICALGIA, THORACIC SPINE FX TECHNIQUE: Noncontrast sagittal T1 spin echo and T2 fast spin echo, sagittal STIR, foraminal oblique sagittal T2 fast spin echo, and axial gradient echo or T2 fast spin echo through the cervical spine. COMPARISON: 03/29/2024 FINDINGS: Image quality: Excellent. Alignment and Curvature: There is exaggerated cervical lordosis, trace retrolisthesis C3-4, and trac e anterolisthesis C6-7. Bone Marrow: Cervical vertebral bodies are normal in marrow signal. There is mild edema and a severe wedge compression fracture of T1 and T4. The degree of edema is similar, may be slightly less compare d to the prior exam. Spinal Cord: Visualized spinal cord has normal size and signal. No cerebellar tonsillar herniation. Paraspinous Soft Tissues: No paravertebral masses. Prevertebral soft tissues are normal in thicknes s. C2-C3: Normal in appearance. C3-C4: Moderate broad-based posterior disc bulge. Moderate disc height loss. Trace retrolisthesis. Probable right foraminal stenosis. No significant central canal stenosis. C4-C5: Minor broad-based posterior disc osteophyte. Mild disc height loss. No significant central ca nal or foraminal stenosis. C5-C6: Moderate disc height loss and desiccation. Moderate right and mild left foraminal narrowing. C6-C7: Mild posterior disc height loss without definite disc bulge. No significant central canal or foraminal stenosis. C7-T1: Not well evaluated due to lordosis. No obvious central canal or foraminal stenoses. IMPRESSION: Similar appearance of T1 and T4 compression fractures Exaggerated cervical lordosis and trace spondylolisthesis as described above. Probably chronic scattered foraminal narrowing, likely due to spondylolisthesis and accentuated by ce rvical lordosis. Reviewed by: Maria Luisa Hinson MD on 05/21/2024 4:15 PM PDT Approved by: Maria Luisa Hinson MD on 05/21/2024 4:15 PM PDT Station ID: [id number]
--- NOTE | 2024-05-21 16:27 | MRI Report ---
PROCEDURE: Thoracic Spine WO INDICATIONS: THORACIC SPINE FX TECHNIQUE: Noncontrast sagittal T1 spine echo and T2 fast spin echo, sagittal STIR, axial T1 and T2 fast spin ec ho through the thoracic spine. COMPARISON: 03/29/2024, 02/25/2024 FINDINGS: Image quality: Excellent. Alignment and Curvature: There is mildly exaggerated thoracic kyphosis. Bone Marrow: -Moderately severe T1 anterior wedge compression fracture with trace retropulsion of the posterior co rtex. Mild central canal stenosis at this level. Mild diffuse osseous edema throughout the vertebral body. -Severe anterior wedge compression fracture of T4 with minimal retropulsion of posterior cortex and m ild central canal stenosis.. -Severe anterior wedge compression fracture deformity of T9 without retropulsion of the cortex. Moder ate diffuse marrow edema. Mild endplate edema involving T8 and T10 endplates. Spinal Cord: Visualized spinal cord is normal in size and signal. Paraspinous Soft Tissues: No paravertebral masses. IMPRESSION: Subacute T9 compression fracture, present on radiographs 02/25/2024. Subacute to more chronic compression fractures of T1 and T4. There is mild central canal stenosis due to minimal posterior cortex retropulsion at these levels but no significant cord signal abnormality. Reviewed by: Maria Luisa Hinson MD on 05/21/2024 4:26 PM PDT Approved by: Maria Luisa Hinson MD on 05/21/2024 4:26 PM PDT Station ID: [id number]
== END 2024-05-21 12:42 | disposition home or self-care (01) ==
LOC: DI 12:41
PROVIDERS: ATTEND Internal Medicine
DX: S22.010D Wedge compression fracture of first thoracic vertebra, subsequent encounter for fracture with routine healing (principal); M48.04 Spinal stenosis, thoracic region; M43.14 Spondylolisthesis, thoracic region; M47.812 Spondylosis without myelopathy or radiculopathy, cervical region